=== PATIENT | female | born 1995 | race Two or more races ===

== ENCOUNTER 2025-08-02 09:15 | Emergency (ER) | payer MEDICAID, OTHER ==
[~2025-08-02] VITALS: Ht 180.3 cm; Wt 66.1 kg
[2025-08-02] MEDS: ONDANSETRON HCL 4 MG/2 ML VIAL IV ONE (09:59)
[2025-08-02] MEDS: SODIUM CHLORIDE 0.9% 1,000 ML IV ONE (09:59)
[2025-08-02] MEDS: KETOROLAC TROMETH 30 MG/ML 1ML VIAL IV ONE (09:59)
[2025-08-02 10:01] LABS: Hemoglobin 8.4 g/dL (12.2-16.2); Nucleated Red Blood Cells % 0.0 %
[2025-08-02] MEDS: FAMOTIDINE (10MG/ML) 2ML VL IV ONE (10:01)
[2025-08-02 10:02] LABS: Hematocrit 28.3 % (36.0-46.0); Mean Corpuscular Hemoglobin 18.4 pg (28.0-32.0); Mean Corpuscular Volume 62.0 fL (80.0-100.0)
[2025-08-02 10:06] VITALS: BP 126/67; PULSE 98; RESP 15; TEMP 98; O2SAT 98
[2025-08-02 10:08] LABS: Chloride 106 mmol/L (98-107); Potassium 4.8 mmol/L (3.5-5.1); Sodium 140 mmol/L (136-145)
[2025-08-02 10:09] LABS: Anion Gap 6 (5-15); Carbon Dioxide 28 mmol/L (20-31)
[2025-08-02 10:10] LABS: Calcium 9.1 mg/dL (8.7-10.4)
[2025-08-02 10:14] LABS: BUN/Creatinine Ratio 14.1 (10.0-20.0); Glucose 85 mg/dL (74-106)
[2025-08-02 10:16] LABS: Blood Urea Nitrogen 9 mg/dL (9-23)
--- NOTE | 2025-08-02 10:22 | ED.PDOC ---
History of Present Illness HPI Comments 40-year-old female presents to the ER with a chief complaint of abdominal pain. Patient reports a having diffuse abdominal cramping associated with nausea and vomiting which was started this morning. Denies any other symptoms at this time. Denies chills, fever, /D, SOB, CP. No other associated symptoms, m odifiers, recent injuries or sick contacts present at this time. Chief Complaint: Abdominal Pain Time Seen by MD: 10:00 Reviewed Notes: Nurses Notes, Medications, Allergies Allergies: Coded Allergies: NO KNOWN ALLERGIES (Unverified , 08/02/25) Information Source: Patient Mode of Arrival: Ambulatory Severity: Moderate Timing: Hours Duration: Since onset, Hours Prehospital treatment: None Past Medical History PAST MEDICAL HISTORY: Denies Surgical History: Denies all surgeries INDUSTRIAL HYGIENE ENGINEER History: No Pertinent INDUSTRIAL HYGIENE ENGINEER History Family History Family History: Reviewed,noncontributory to illness, Unknown Social History Smoker: Non-Smoker Alcohol: Denies ETOH Use Drugs: Marijuana Lives In: Home Constitutional: denies: chills, diaphoresis, fatigue, fever, malaise, sweats, weakness, others EENTM: denies: blurred vision, double vision, ear bleeding, ear discharge, ear drainage, ear pain, ear ringing, eye pain, eye redness, hearing loss, mouth pain, mouth swelling, nasal discharge, nose bleeding, nose congestion, nose pain, photophobia, tearing, throat pain, throat swelling, voice changes, others Respiratory: denies: cough, hemoptysis, orthopnea, SOB at rest, shortness of breath, SOB with excertion, stridor, wheezing, others Cardiovascular: denies: chest pain, dizzy spells, diaphoresis, Dyspnea on exertion, edema, irregular heart beat, left arm pain, lightheadedness, palpitations, PND, syncope, others Gastrointestinal: reports: abdominal pain, nausea, vomiting; denies: abdomen distended, blood streaked bowels, constipated, diarrhea, dysphagia, difficulty swallowing, hematemesis, melena, poor appetite, poor fluid intake, rectal bleeding, rectal pain, others Genitourinary: denies: abnormal vagina bleeding, burning, dyspareunia, dysuria, flank pain, frequency, hematuria, incontinence, pain, , vagina discharge, urgency, others Neurological: denies: dizziness, fainting, headache, left sided numbness, left sided weakness, numbness, paresthesia, pre-existing deficit, right sided numbness, right sided weakness, seizure, speech problems, tingling, tremors, weakness, others Musculoskeletal: denies: back pain, gout, joint pain, joint swelling, muscle pain, muscle stiffness, neck pain, others Integumetry: denies: bruises, change in color, change in hair/nails, dryness, laceration, lesions, lumps, rash, wounds, others Allergic/Immunocompromised: denies: Difficulty Healing, Frequent Infections, Hives, Itching, others Hematologic/Lymphatic: denies: anemia, blood clots, easy bleeding, easy bruising, swollen glands, others Endocrine: denies: excessive hunger, excessive sweating, excessive thirst, excessive urination, flushing, intolerance to cold, intolerance to heat, unex plained weight gain, unexplained weight loss, others Psychiatric: denies: anxiety, bipolar disorder, depression, hopeless, panic disorder, schizophrenia, sleepless, suicidal, others All Other Systems: Reviewed and Negative Physical Exam General Appearance: No Apparent Distress, Normal HEENT: Normal ENT Inspection, Pharynx Normal, TMs Normal Neck: Full Range of Motion, Non-Tender, Normal, Normal Inspection Respiratory: Chest Non-Tender, Lungs Clear, No Accessory Muscle Use, No Respiratory Distress, Normal Breath Sounds Cardiovascular: No Edema, No JVD, No Murmur, No Gallop, Normal Peripheral Puls es, Regular Rate/Rhythm Breast Exam: Deferred Gastrointestinal: No Organomegaly, Non Tender, No Pulsatile Mass, Normal Bowel Sounds, Soft Genitalia: Deferred Pelvic: Deferred Rectal: Deferred Extremities: No calf tenderness, Normal capillary refill, Normal inspection, Normal range of motion, Non-tender, No pedal edema Musculoskeletal : Apperance: Normal Neurologic: Alert, elevator runner II-XII nml as Tested, No Motor Deficits, Normal Affect, Normal Mood, No Sensory Deficits Cerebellar Function: Normal Reflexes: Normal Skin: Dry, Normal Color, Warm Lymphatic: No Adenopathy Was a procedure done? Was a procedure done?: No Differential Dx Considerations may include: See MDM X-Ray, Labs, Meds, VS Vital Signs Date Time Temp Pulse Resp B/P (MAP) Pulse Ox O2 Delivery O2 Flow Rate FiO2 08/02/25 10:06 Room Air* 0 21 08/02/25 10:06 98.0 98 15 126/67 (86) 98 98.0 08/02/25 09:17 98.0 110 15 132/101 96 98.0 Lab Test 08/02/25 10:10 08/02/25 09:50 Range/Units Urine Color Colorless Yellow Urine Clarity Clear Clear Urine pH 6.0 5.0-9.0 Urine Specific [place] 1.010 1.001-1.035 Urine Protein Negative Negative Urine Ketones Negative Negative Urine Blood 3+ H Negative /uL Urine Nitrite Negative Negative Urine Bilirubin Negative Negative Urine Urobilinogen Normal Negative mg/dL Urine Leukocyte Esterase Negative Negative /uL Urine RBC 406 0 - 4 /hpf Urine Microscopic WBC 2 0-5 /HPF Urine Squamous Epithelial Cells Few <5 /hpf Urine Bacteria None seen None Seen /hpf Urine Glucose Normal Normal mg/dL Urine Test Negative Negative White Blood Count 5.8 4.4-10.8 10^3/uL Red Blood Count 4.57 4.0-5.20 10^6/uL Hemoglobin 8.4 L 12.2-16.2 g/dL Hematocrit 28.3 L 36.0-46.0 % Mean Corpuscular Volume 62.0 L 80.0-100.0 fL Mean Corpuscular Hemoglobin 18.4 L 28.0-32.0 pg Mean Corpuscular Hemoglobin Concent 29.6 L 32.0-36.0 g/dL Red Cell Distribution Width 21.0 H 11.8-14.3 % Platelet Count 224 140-450 10^3/uL Mean Platelet Volume 8.0 6.9-10.8 fL Neutrophils (%) (Auto) 70.6 37.0-80.0 % Lymphocytes (%) (Auto) 18.8 10.0-50.0 % Monocytes (%) (Auto) 8.6 0.0-12.0 % Eosinophils (%) (Auto) 1.4 0.0-7.0 % Basophils (%) (Auto) 0.6 0.0-2.0 % Neutrophils # (Auto) 4.1 1.6-8.6 10 ^3/uL Lymphocytes # (Auto) 1.1 0.4-5.4 10 ^3/uL Monocytes # (Auto) 0.5 0-1.3 10 ^3/uL Eosinophils # (Auto) 0.1 0-0.8 10 ^3/uL Basophils # (Auto) 0 0-0.2 10 ^3/uL Nucleated Red Blood Cells 0.0 % Platelet Estimate Adequate Hypochromasia (manual) Marked Anisocytosis (manual) Slight Microcytosis Marked Ovalocytes Few Sodium Level 140 136-145 mmol/L Potassium Level 4.8 3.5-5.1 mmol/L Chloride Level 106 98-107 mmol/L Carbon Dioxide Level 28 20-31 mmol/L Anion Gap 6 5-15 Blood Urea Nitrogen 9 9-23 mg/dL Creatinine 0.64 0.550-1.02 mg/dL Glomerular Filtration Rate Calc 115 >90 mL/min BUN/Creatinine Ratio 14.1 10.0-20.0 Serum Glucose 85 74-106 mg/dL Calcium Level 9.1 8.7-10.4 mg/dL Current Medications Medications (Trade) Dose Ordered Sig/[place] Route Start Time Stop Time Status Last Admin Sodium Chloride 1,000 ml @ 1,000 mls/hr Q1H ONCE IV 08/02/25 09:45 08/02/25 10:44 DC 08/02/25 09:59 Ondansetron HCl (Zofran) 4 mg ONCE ONCE IV 08/02/25 09:45 08/02/25 09:46 DC 08/02/25 09:59 Famotidine (Pepcid Injection) 20 mg ONCE ONCE IV 08/02/25 09:45 08/02/25 09:46 DC 08/02/25 10:01 Ketorolac Tromethamine (Toradol Injection) 15 mg ONCE ONCE IV 08/02/25 09:45 08/02/25 09:46 DC 08/02/25 09:59 Time of 1ST Reevaluation: 10:30 Reevaluation 1ST: Unchanged Patient Education/Counseling: Diagnosis, Treatment, Prognosis Family Education/Counseling: No Family Present Comments Medical Decision Making: This is a 30-year-old female presenting with diffuse lower abdominal cramping and myalgias. The differential diagnosis included viral syndrome, menstrual- related pain, early urinary tract infection, nephrolithiasis, anemia-related symptoms, gastroenteritis, ovarian pathology, and nonspecific abdominal pain. Workup: CBC: notable for Hgb 8.4, consistent with anemia. Etiology not yet established. No leukocytosis. BMP: benign; no electrolyte abnormalities or evidence of renal dysfunction. UA: negative for ; positive for blood, raising consideration for nephrolithiasis, cystitis with hematuria, or contamination depending on symptoms. Additional diagnostics were pending at the time of elopement. ED Course / Treatment: The patient was treated symptomatically with IV fluids, Pepcid, Zofran, and Toradol with partial improvement. Further evaluation was indicated to assess the significance of her anemia, investigate hematuria, and evaluate for a possible gynecologic or renal source of abdominal pain. However, the patient eloped prior to completion of her diagnostic workup and prior to final disposition. Staff attempted to locate and contact her but she was no longer in the ED. She left before a full reassessment or discussion regarding her anemia and hematuria. Risk / Disposition: Given patient elopement, she left before evaluation could determine the cause of her anemia (Hgb 8.4) and hematuria, and before abdominal pain could be fully assessed. The patient was stable at last known evaluation, but her leaving the department resulted in an incomplete workup. She was unable to receive discharge instructions or follow-up planning. SEPSIS Sepsis Screen Date sepsis recognized/suspect: Aug 02, 2025 Time Sepsis recognized/suspect: 917 Recent Procedure: No On Antibiotic Therapy: No Respiratory Rate >20: No Heart Rate >90: Yes Temp<36 C (96.8 F) or >38.3 C: No SBP <90 or MAP <65 mmHG: No New Acute Mental Status Change: No Is the patient on CPAP, BIPAP,: No Vital Signs Date Time Temp Pulse Resp B/P (MAP) Pulse Ox O2 Delivery O2 Flow Rate FiO2 08/02/25 10:06 Room Air* 0 21 08/02/25 10:06 98.0 98 15 126/67 (86) 98 98.0 08/02/25 09:17 98.0 110 15 132/101 96 98.0 Laboratory Tests Test 08/02/25 09:50 White Blood Count 5.8 10^3/uL (4.4-10.8) Medications Medications Dose Ordered Sig/[place] Route Start Time Stop Time Status Last Admin Dose Admin Famotidine 20 mg ONCE ONCE IV 08/02/25 09:45 08/02/25 09:46 DC 08/02/25 10:01 Ketorolac Tromethamine 15 mg ONCE ONCE IV 08/02/25 09:45 08/02/25 09:46 DC 08/02/25 09:59 Ondansetron HCl 4 mg ONCE ONCE IV 08/02/25 09:45 08/02/25 09:46 DC 08/02/25 09:59 Sodium Chloride 1,000 ml @ 1,000 mls/hr Q1H ONCE IV 08/02/25 09:45 08/02/25 10:44 DC 08/02/25 09:59 Departure 1 Departure Time of Disposition: 14:02 Impression: Primary Impression: Viral syndrome Additional Impression: Lower abdominal pain Disposition: LEFT AWOL/ELOPED Condition: Serious Critical Care Note Critical Care Time?: No Stability Stability form required: No I personally scribed for LUDWIN REGAN MD ([email or web address]) on 08/02/25 at 10:22. Electronically submitted by Matthew Bruno ([email or web address]). LUDWIN REGAN MD Aug 02, 2025 10:22
[2025-08-02 10:57] LABS: Urine Protein, UAD Negative (Negative)
[2025-08-02 11:08] LABS: Anisocytosis Slight
[2025-08-02 11:09] LABS: Ovalocytes FEW
== END 2025-08-02 13:54 | disposition left against medical advice (07) ==
LOC: ER 09:15 → EDBD 09:15 → ER 13:54
DX: B34.9 Viral infection, unspecified (principal); R10.30 Lower abdominal pain, unspecified; F12.90 Cannabis use, unspecified, uncomplicated; Z79.899 Other long term (current) drug therapy
CPT/HCPCS: 36415; 80048; 81001; 81025; 85025; 96361; 96374; 96375; 99284; J1885; J2405; J3490; J7030

== ENCOUNTER 2025-08-09 15:21 | Emergency (ER) | payer MEDICAID ==
[~2025-08-09] VITALS: Ht 180.3 cm; Wt 67.2 kg
[2025-08-09 17:17] VITALS: BP 126/94; PULSE 123; RESP 16; TEMP 99; O2SAT 100
[2025-08-09] MEDS ORDERED: CEPH500C PO (18:15)
[2025-08-09] MEDS ORDERED: IBU600T PO (18:15)
--- NOTE | 2025-08-09 18:16 | ED.PDOC ---
History of Present Illness Chief Complaint: Tooth Pain Comments This is a patient who has been having dental caries for many months. Her right lower premolar area has bad cavities which are hurting her now. She has no fever no facial swelling. Time Seen by MD: 17:57 Allergies: Coded Allergies: NO KNOWN ALLERGIES (Unverified , 08/02/25) Mode of Arrival: Ambulatory Past Medical History PAST MEDICAL HISTORY: Denies Surgical History: Denies all surgeries WASTE DISPOSAL ATTENDANT History: No Pertinent WASTE DISPOSAL ATTENDANT History Family History Family History: Reviewed,noncontributory to illness, Unknown Social History Smoker: Non-Smoker Alcohol: Denies ETOH Use Drugs: Marijuana Lives In: Home Constitutional: denies: chills, diaphoresis, fatigue, fever, malaise, sweats, weakness, others EENTM: reports: others (Dental pain); denies: blurred vision, double vision, ear bleeding, ear discharge, ear drainage, ear pain, ear ringing, eye pain, eye redness, hearing loss, mouth pain, mouth swelling, nasal discharge, nose bleeding, nose congestion, nose pain, photophobia, tearing, throat pain, throat swelling, voice changes Respiratory: denies: cough, hemoptysis, orthopnea, SOB at rest, shortness of breath, SOB with excertion, stridor, wheezing, others Cardiovascular: denies: chest pain, dizzy spells, diaphoresis, Dyspnea on exertion, edema, irregular heart beat, left arm pain, lightheadedness, palpitations, PND, syncope, others Gastrointestinal: denies: abdomen distended, abdominal pain, blood streaked bowels, constipated, diarrhea, dysphagia, difficulty swallowing, hematemesis, melena, nausea, poor appetite, poor fluid intake, rectal bleeding, rectal pain, vomiting, others Genitourinary: denies: abnormal vagina bleeding, burning, dyspareunia, dysuria, flank pain, frequency, hematuria, incontinence, pain, , vagina disch arge, urgency, others Neurological: denies: dizziness, fainting, headache, left sided numbness, left sided weakness, numbness, paresthesia, pre-existing deficit, right sided numbness, right sided weakness, seizure, speech problems, tingling, tremors, weakness, others Musculoskeletal: denies: back pain, gout, joint pain, joint swelling, muscle pain, muscle stiffness, neck pain, others Integumetry: denies: bruises, change in color, change in hair/nails, dryness, laceration, lesions, lumps, rash, wounds, others Allergic/Immunocompromised: denies: Difficulty Healing, Frequent Infections, Hives, Itching, others Hematologic/Lymphatic: denies: anemia, blood clots, easy bleeding, easy bruising, swollen glands, others Endocrine: denies: excessive hunger, excessive sweating, excessive thirst, excessive urination, flushing, intolerance to cold, intolerance to heat, unexplained weight gain, unexplained weight loss, others Psychiatric: denies: anxiety, bipolar disorder, depression, hopeless, panic disorder, schizophrenia, sleepless, suicidal, others All Other Systems: Reviewed and Negative Physical Exam General Appearance: No Apparent Distress, Normal HEENT: Normal ENT Inspection, Pharynx Normal, TMs Normal, Other (Right lower premolar multiple dental caries. No gingival swelling no facial abscess.) Neck: Full Range of Motion, Non-Tender, Normal, Normal Inspection Respiratory: Chest Non-Tender, Lungs Clear, No Accessory Muscle Use, No Respiratory Distress, Normal Breath Sounds Cardiovascular: No Edema, No JVD, No Murmur, No Gallop, Normal Peripheral Pulses, Regular Rate/Rhythm Breast Exam: Deferred Gastrointestinal: No Organomegaly, Non Tender, No Pulsatile Mass, Normal Bowel Sounds, Soft Genitalia: Deferred Pelvic: Deferred Rectal: Deferred Extremities: No calf tenderness, Normal capillary refill, Normal inspection, Normal range of motion, Non-tender, No pedal edema Musculoskeletal : Apperance: Normal Neurologic: Alert, vp strategy II-XII nml as Tested, No Motor Deficits, Normal Affect, Normal Mood, No Sensory Deficits Cerebellar Function: Normal Reflexes: Normal Skin: Dry, Normal Color, Warm Lymphatic: No Adenopathy Was a procedure done? Was a procedure done?: No Differential Dx Considerations may include: Dental caries, dental abscess, facial was abscess, patient's cellulitis, Matthias's angina, peritonsillar abscess, other maxillofacial infections X-Ray, Labs, Meds, VS Vital Signs Date Time Temp Pulse Resp B/P (MAP) Pulse Ox O2 Delivery O2 Flow Rate FiO2 08/09/25 17:17 99.0 123 16 126/94 (105) 100 99.0 08/09/25 17:17 Room Air* 0 21 08/09/25 15:29 131 08/09/25 15:22 98.7 141 18 137/73 96 98.7 Time of 1ST Reevaluation: 18:13 Reevaluation 1ST: Unchanged Patient Education/Counseling: Diagnosis, Treatment, Prognosis, Need For Follow Up Family Education/Counseling: No Family Present Comments This patient has bad dentition due to dental caries. She does not have facial abscess facial cellulitis, or dental abscess. She does not have trismus. I will start her on or antibiotic. She is stable to follow up with Dentistry SEPSIS Sepsis Screen Date sepsis recognized/suspect: Aug 09, 2025 Time Sepsis recognized/suspect: 1524 Recent Procedure: No On Antibiotic Therapy: No Respiratory Rate >20: No Heart Rate >90: Yes Temp<36 C (96.8 F) or >38.3 C: No SBP <90 or MAP <65 mmHG: No New Acute Mental Status Change: No Is the patient on CPAP, BIPAP,: No Physician Orders Electrocardigram (08/09/25 15:32) Vital Signs Date Time Temp Pulse Resp B/P (MAP) Pulse Ox O2 Delivery O2 Flow Rate FiO2 08/09/25 17:17 99.0 123 16 126/94 (105) 100 99.0 08/09/25 17:17 Room Air* 0 21 08/09/25 15:29 131 08/09/25 15:22 98.7 141 18 137/73 96 98.7 Departure 1 Departure Time of Disposition: 18:13 Impression: Primary Impression: Dental caries Additional Impression: Tooth pain Disposition: 01 HOME / SELF CARE / HOMELESS (I feel like a failure he is in the trigger) Condition: Stable e-Prescriptions Ibuprofen Micronized (MOTRIN TABLET) 600 Mg Tb 600 MG PO TID PRN, #40 TAB *Black box warning-NSAIDS can increase risk of GA & hypertension, GI irritation, ulceration, bleed, perferation. Do not use post cardiac surgery. Use short duration/lowest effective dose. Prov: JEAN CLAUDE MAXWELL MD 08/09/25 Cephalexin Monohydrate (Cephalexin) 500 Mg Cap 500 MG PO Q6HR, #40 MG Prov: JEAN CLAUDE MAXWELL MD 08/09/25 Discharged With: Self Critical Care Note Critical Care Time?: No Stability Stability form required: No JEAN CLAUDE MAXWELL MD Aug 09, 2025 18:16
--- NOTE | 2025-08-11 07:35 | ECG ---
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
== END 2025-08-09 18:39 | disposition home or self-care (01) ==
LOC: ER 15:21
DX: K02.9 Dental caries, unspecified (principal); Z79.899 Other long term (current) drug therapy
CPT/HCPCS: 93005